=== PATIENT | female | born 1985 | race Caucasian/White ===

== ENCOUNTER → 2020-07-02 09:44 | Outpatient (BNVA) | payer MEDICARE, MEDICAID, SELFPAY | PROVIDERS: Family Provider Nurse Practitioner; PCP Nurse Practitioner; Visit Provider Nurse Practitioner Family | DX: M25.531 Pain in right wrist (principal); M79.641 Pain in right hand | CPT/HCPCS: 73110; 73130 ==

== ENCOUNTER 2020-07-06 23:58 | Emergency (ER) | payer MEDICARE, MEDICAID, SELFPAY ==
[2020-07-07] VITALS: BP 119/75; PULSE 83; RESP 16; TEMP 36.7; O2SAT 95; BMI 19.6
--- NOTE | 2020-07-07 00:05 | ED_ITS ---
HPI - Skin/Abscess/Foreign Bdy General: Chief complaint: Skin/Abscess/Foreign Body Stated complaint: RASH Time Seen by Provider: 07/07/20 00:03 History of Present Illness: HPI narrative: Patient is a 35-year-old female who comes to the ED with pruritic rash. Patient says the rash started last Sunday. Patient says she started taking a new medication and believes that that caused the rash. She was seen at her primary care provider on July 02 and she was diagnosed with dermatitis caused by new medication and was told to stop taking it. Primary care provider also sent a prescription for methylprednisolone to her pharmacy, but she has not gotten prescription filled because she did not have the money. Patient says she has been applying some hydrocortisone cream on the rash but has not taken any Benadryl either. Rashes is generalized and pruritic and is on all extremities torso neck and scalp. Denies any shortness of breath, nausea or vomiting, fever or any other symptoms. Associated symptoms: Deny chills, fever(s), nausea or vomiting Review of Systems Const: Denies: fever(s), chills or fatigue Eyes: Denies: change in vision or eye discomfort ENMT: Denies: throat pain, odynophagia, nasal discharge or nasal congestion Card: Denies: chest pain, palpitations, edema, swelling of feet/ankles, dyspnea on exertion or orthopnea Resp: Denies: dyspnea, productive cough or non-productive cough GI: Denies: abdominal pain, nausea, vomiting, diarrhea, constipation or hematochezia : Denies: flank pain, dysuria or hematuria Musc: Denies: neck pain, back pain or extremity swelling Skin/Breast: Reports: rash; Denies: new lesions Neuro: Denies: headache(s), numbness in extremities or weakness in extremities PFSH ED PFSH: Family History Mother Diabetes Hypertension Grandfather Hypertension Other Heart disease Social History Smoking and tobacco status: current every day smoker cigarettes Packs smoked per day: 0.25 Years cigarettes smoked: 13 Quit status (tobacco): considering quitting Second hand smoke exposure: No Alcohol intake: never Lives independently: Yes service: No History of recent travel: No Current gender identity: Female Female Reproductive History: Date of last menstrual period: 06/19/20 Physical Exam Const: COMMON NORMALS: no acute distress, patient oriented x3 and alert GENERAL APPEARANCE: cooperative and comfortable HENMT: COMMON NORMALS: normocephalic HEAD & SCALP: normocephalic MOUTH: Normal oral and palatal mucosa present THROAT: posterior oropharynx normal and uvula midline Neck/C-Spine: COMMON NORMALS: supple GENERAL: Yes normal visual inspection Resp: COMMON NORMALS: normal respiratory effort, No retractions, No use of accessory muscles and clear to auscultation bilaterally AUSCULTATION: clear to auscultation bilaterally Cardio: COMMON NORMALS: regular rate, regular rhythm, S1 normal heart sound present, S2 normal heart sound present, No gallops present (Cardio), No clicks present (Cardio), No murmurs present (Cardio) and Peripheral pulses 2+ throughout RATE: regular rate RHYTHM: regular rhythm HEART SOUNDS: S1 normal heart sound present and S2 normal heart sound present PERIPHERAL PULSES: Peripheral pulses 2+ throughout GI: COMMON NORMALS: Normal to inspection, nondistended, normoactive bowel sounds present, Soft to palpation, non-tender and no masses PALPATION: Yes Soft to palpation : COMMON NORMALS: Yes no CVA tenderness BLADDER/KIDNEY EXAM: Yes no CVA t enderness Back/Pelvis: COMMON NORMALS: no CVA tenderness Extremity: NARRATIVE EXTREMITY EXAM: Pruritic rash on both right and left upper lower extremities. GENERAL: Yes normal exam except as noted Neuro: COMMON NORMALS: patient oriented x3 and moves all extremities SENSORIUM/ORIENTATION: Yes alert Skin: NARRATIVE SKIN EXAM: Patient has pruritic generalized rash on both right and left upper and lower extremities, torso and neck and scalp. Course Vital Signs: Vital signs: Vital Signs Temperature 98.1 F 07/07/20 00:00 Pulse Rate 83 07/07/20 00:00 Respiratory Rate 16 07/07/20 00:00 Blood Pressure 119/75 07/07/20 00:00 Pulse Oximetry 95 07/07/20 00:00 MDM - Skin/Abscess/Foreign Bdy MDM Narrative: Medical decision making narrative: Patient is a 35-year-old female comes the ED with pruritic rash. Rash started after patient took prescription medication and she has since stopped taking med. She saw her primary care doctor couple days ago about a rash and he told her to stop taking med and sent her with a prescription for Medrol Dosepak. Denies any other symptoms or trouble breathing. Patient has not filled that prescription because she did not have the money and has not taken any other medications that he suggested such as Benadryl. Patient is on no acute distress or pain. Physical exam shows a generalized pruritic rash all throughout her body while here in the ED patient was given IM triamcinolone and 50 mg of Benadryl. She was discharged with a prescription for triamcinolone cream and a Medrol Dosepak. Patient wanted me to give her another prescription for Medrol Dosepak so she could get it filled at [facility] pharmacy. Return to ED precautions given. Patient was told to follow-up with PCP in 7 to 10 days for reevaluation. Patient understood and agreed with plan. Discharge Plan Discharge Patient Disposition: Home Clinical Impression: Dermatitis Condition: Stable Prescriptions: New methylprednisolone 4 mg tablets,dose pack See Rx Instructions .ROUTE .COMPLEX Qty: 21 RF: 0 triamcinolone acetonide 0.1 % cream 1 applic TOPICAL BID Qty: 15 RF: 0 No Action albuterol sulfate [ProAir HFA] 90 mcg/actuation HFA aerosol inhaler 2 puff INHALATION Q6H PRNRF: 0 methylprednisolone [Medrol (Alex)] 4 mg tablets,dose pack See Rx Instructions PO PER PKG DIR Qty: 21 RF: 0 Discharge Orders: Discharge Order (Routine); Ordered 07/07/20 Ordered By: Cesar Mancuso Referrals: Melissa Sorto, WET POUR SUPERVISOR-C [Primary Care Provider] - Discharge Diet: Regular Discharge Activity: Resume usual activity Patient Instructions: Contact Dermatitis (ED) Activity Restrictions/Additional Instructions: Follow-up with medical provider as directed in 7-10 days. Take medications as prescribed. Take full course of methylprednisolone and purchase an [id number] Benadryl to take also to help with rash. I also am also sending you with a prescription for topical steroid cream you can use on rash as well. Return to the ER or your medical provider if condition worsens. Please read and understand discharge instructions. If any questions, please ask. Coding Level of Care Code ED Theatre Manager for Myles Fwdevon Exam Comprehensive
[2020-07-07] MEDS: diphenhydrAMINE 50 mg Capsule PO (00:53)
[2020-07-07] MEDS: triamcinolone 40 mg/mL SDV IM (00:54)
[2020-07-07 01:07] VITALS: BP 103/69; PULSE 85; RESP 14; O2SAT 99
== END 2020-07-07 01:08 | disposition home or self-care (01) ==
LOC: ER 07-07 00:24
PROVIDERS: Emergency Provider Physician Assistant; PCP Nurse Practitioner
DX: L30.9 Dermatitis, unspecified (principal); F17.210 Nicotine dependence, cigarettes, uncomplicated
CPT/HCPCS: 12345; 96372; 99281; 99283; J3301; Q0163

== ENCOUNTER → 2020-08-03 13:42 | Outpatient (BNVA) | payer MEDICARE, MEDICAID, SELFPAY | PROVIDERS: PCP Nurse Practitioner; Visit Provider Nurse Practitioner Family | DX: L02.612 Cutaneous abscess of left foot (principal) | CPT/HCPCS: 73630 ==

== ENCOUNTER → 2020-08-10 15:26 | Outpatient (BNVA) | payer MEDICARE, SELFPAY | PROVIDERS: PCP Nurse Practitioner; Visit Provider Nurse Practitioner Family | DX: L02.612 Cutaneous abscess of left foot (principal) | CPT/HCPCS: 84450; 87070 ==

== ENCOUNTER → 2020-08-18 14:37 | Outpatient (BNVA) | payer MEDICARE, SELFPAY | PROVIDERS: PCP Nurse Practitioner; Visit Provider Nurse Practitioner Family | DX: L02.612 Cutaneous abscess of left foot (principal) | CPT/HCPCS: 84450; 87070; 87075; 87205 ==

== ENCOUNTER 2020-08-23 14:07 | Outpatient (CLI) | payer MEDICARE, MEDICAID, SELFPAY | END 2020-08-23 14:08 | disposition home or self-care (01) | LOC: WOUND 14:10 | PROVIDERS: PCP Nurse Practitioner; Visit Provider Thoracic Surgery (Cardiothoracic Vascular Surgery) | DX: L97.521 Non-pressure chronic ulcer of other part of left foot limited to breakdown of skin (principal) | CPT/HCPCS: 11042; G0463; L3260 ==

== ENCOUNTER → 2020-08-31 14:56 | Outpatient (BNVA) | payer MEDICARE, MEDICAID, SELFPAY | PROVIDERS: PCP Nurse Practitioner; Visit Provider Nurse Practitioner Family | DX: L97.509 Non-pressure chronic ulcer of other part of unspecified foot with unspecified severity (principal); Z13.6 Encounter for screening for cardiovascular disorders; R73.9 Hyperglycemia, unspecified; M54.5 Low back pain | CPT/HCPCS: 80053; 80061; 81003; 83036; 84443; 85025 ==

== ENCOUNTER 2021-04-21 21:23 | Emergency (ER) | payer MEDICARE, SELFPAY ==
--- NOTE | 2021-04-21 21:35 | ED_ITS ---
HPI - General Adult General: Chief complaint: Abdominal Pain Stated complaint: jerome malise Time Seen by Provider: 04/21/21 21:34 History of Present Illness: HPI narrative: Patient comes in today for not feeling well. Patient thought she might be having some problems with blood sugar. Patient has no history of diabetes. Patient takes no routine medications. EMS checked patient's blood sugar and it was 113. Patient appears mildly unwell but not toxic. Patient appears in no pain. Associated symptoms: Reports malaise Review of Systems General: Reports: 10 or more systems reviewed and unremarkable except in HPI and below Const: Reports: malaise [facility] ED PFSH: Medical History (Updated 04/21/21 @ 22:40 by EDILIA Kiran) Asthma Depression Enlarged thyroid Environmental and seasonal allergies GERD (gastroesophageal reflux disease) Scabies Surgical History Hx of cholecystectomy Family History Mother Diabetes Hypertension Grandfather Hypertension Other Heart disease Social History Smoking and tobacco status: current every day smoker cigarettes Packs smoked per day: 0.25 Years cigarettes smoked: 13 Quit status (tobacco): considering quitting Second hand smoke exposure: No Alcohol intake: never Lives independently: Yes service: No History of recent travel: No Current gender identity: Female Female Reproductive History: Date of last menstrual period: 06/19/20 Physical Exam Const: COMMON NORMALS: no acute distress and patient oriented x3 GENERAL APPEARANCE: cooperative HENMT: COMMON NORMALS: normocephalic and Normal external nose present HEAD & SCALP: normal to inspection and normocephalic NOSE: Normal external nose present MOUTH: Normal oral and palatal mucosa present THROAT: posterior oropharynx normal Eye: GENERAL EYE: appearance normal, both eyes and all related structures Neck/C-Spine: COMMON NORMALS: full ROM Lymph: LYMPHATIC: no lymphadenopathy noted Chest: COMMONS NORMALS: normal inspection of the chest Resp: COMMON NORMALS: normal respiratory effort EFFORT & INSPECTION: Yes able to speak in complete sentences Cardio: COMMON NORMALS: regular rate and regular rhythm RATE: regular rate RHYTHM: regular rhythm GI: COMMON NORMALS: non-tender : COMMON NORMALS: Yes no CVA tenderness BLADDER/KIDNEY EXAM: Yes no CVA tenderness Back/Pelvis: COMMON NORMALS: no CVA tenderness and thoracic and lumbar spine normal to inspection Extremity: COMMON NORMALS: normal to inspection Neuro: COMMON NORMALS: patient oriented x3 and moves all extremities Psych: COMMON NORMALS: mental status grossly normal and cooperative Skin: COMMON NORMALS: no rashes or lesions noted NARRATIVE SKIN EXAM: Uncut fingernails and toenails. GENERAL SKIN EXAM: no rashes or lesions noted Course Vital Signs: Vital signs: Vital Signs Temperature 97.9 F 04/21/21 21:51 Pulse Rate 86 04/21/21 21:51 Respiratory Rate 17 04/21/21 21:51 Blood Pressure 118/66 04/21/21 21:51 Pulse Oximetry 98 04/21/21 21:51 MDM - General Adult MDM Narrative: Medical decision making narrative: 35-year-old female comes in today with reporting malaise. Patient reports just not feeling well today. Patient was brought in by EMS due to her concern of having diabetes. Patient has no history of diabetes but has a history of a poor healing wound to her foot. Patient reports that the wound is healed. On exam patient appears well. Patient is very quiet during the exam denies any suicidal homicidal thought. Lungs were clear to auscultation. Abdomen soft nontender. No CVA tenderness. Skin was warm and dry. Vital signs were normal. Differential diagnosis includes but not limited to worried well, substance abuse, undiagnosed diabetes, dehydration. Laboratory values noted a 12,000 white count, and nitrates in the urine. Remainder of labs were normal. Feel the patient probably has a urinary tract infection which may be contributing to her malaise, I also think the patient may have some substance abuse issues although she denies any or underlying psychiatric disorder. Patient be treated with Bactrim for her UTI 1 tablet twice a day for 5 days, she was given 1 dose of Pyridium and 1 dose of Bactrim in the ER. Lab Data: Labs: Lab Results 04/21/21 04/21/21 04/21/21 Range/Units 21:57 22:00 22:00 WBC 12.6 H (4.0-10.0) 10^3/ uL RBC 4.90 (4.1-5.3) 10^6/u L Hgb 15.3 (11.5-15.3) g/dL Hct 45.2 (37.0-47.0) % MCV 92.2 (81-99) fL MCH 31.2 (28.0-34.0) pg MCHC 33.8 (30.0-36.0) g/dL RDW 12.2 (12.1-15.1) % Plt Count 258 (130-400) 10^3/c mm MPV 10.4 (7.4-10.4) fL Neut % (Auto) 55.8 % Lymph % (Auto) 33.9 % [place] % (Auto) 5.6 % Eos % (Auto) 3.7 % Baso % (Auto) 0.7 % Neut # (Auto) 7.01 (1.8-7.7) 10^3/u L Lymph # (Auto) 4.3 (0.8-4.8) 10^3/u L [place] # (Auto) 0.7 (0.2-0.9) 10^3/u L Eos # (Auto) 0.5 (0.0-0.8) 10^3/u L Baso # (Auto) 0.1 (0.0-0.1) 10^3/u L Nucleated RBC % (a uto) 0 % Nucleated RBCs # 0.0 /100WBC Sodium 141 (136-145) mmol/L Potassium 3.6 (3.5-5.1) mmol/L Chloride 107 (98-107) mmol/L Carbon Dioxide 23 (22-29) mmol/L Anion Gap 14.6 (5-19) BUN 16 (6-20) mg/dL Creatinine 0.6 (0.5-0.9) mg/dL GFR Calculation 112.5 (90-130) mL/min Glucose 87 (65-115) mg/dL Calculated Osmolal ity 293 (285-295) mOsm/k g Calcium 8.6 (8.5-10.5) mg/dL Total Bilirubin 0.3 (0.15-1.2) mg/dL AST 8 (0-32) U/L ALT 15 (0-33) U/L Alkaline Phosphata se 77 (35-105) IU/L Total Protein 6.6 (6.6-8.7) g/dL Albumin 4.0 (3.5-5.2) g/dL Globulin 2.6 (1.3-4.6) g/dL HCG, Qual (Negative) Urine Color Yellow (Yellow) Urine Appearance Sl hazy (CLEAR) Urine pH 9 H (5-7) Ur Specific Gravit y 1.025 (1.005-1.030) Urine Protein Neg (Negative) Urine Glucose (UA) Norm (Normal) Urine Ketones Negative (Negative) Urine Blood Neg (Negative) Urine Nitrate Positive H (Negative) Urine Bilirubin Neg (Negative) Prot Sulfosalicyli c Acd Negative (Negative) Urine Urobilinogen Norm (Negative) mg/dL Ur Leukocyte Hannah ase 1+ H (Negative) Urine RBC 0-4 H (0-2) /hpf Urine WBC 15-25 H (0-5) /hpf Ur Squamous Epith Cells 10-15 H (0-5) /hpf Amorphous Sediment Not Reportable Urine Bacteria 3+ H (NONE) /hpf 06/17/21 Range/Units 22:00 WBC (4.0-10.0) 10^3/ uL RBC (4.1-5.3) 10^6/u L Hgb (11.5-15.3) g/dL Hct (37.0-47.0) % MCV (81-99) fL MCH (28.0-34.0) pg MCHC (30.0-36.0) g/dL RDW (12.1-15.1) % Plt Count (130-400) 10^3/c mm MPV (7.4-10.4) fL Neut % (Auto) % Lymph % (Auto) % [place] % (Auto) % Eos % (Auto) % Baso % (Auto) % Neut # (Auto) (1.8-7.7) 10^3/u L Lymph # (Auto) (0.8-4.8) 10^3/u L [place] # (Auto) (0.2-0.9) 10^3/u L Eos # (Auto) (0.0-0.8) 10^3/u L Baso # (Auto) (0.0-0.1) 10^3/u L Nucleated RBC % (a uto) % Nucleated RBCs # /100WBC Sodium (136-145) mmol/L Potassium (3.5-5.1) mmol/L Chloride (98-107) mmol/L Carbon Dioxide (22-29) mmol/L Anion Gap (5-19) BUN (6-20) mg/dL Creatinine (0.5-0.9) mg/dL GFR Calculation (90-130) mL/min Glucose (65-115) mg/dL Calculated Osmolal ity (285-295) mOsm/k g Calcium (8.5-10.5) mg/dL Total Bilirubin (0.15-1.2) mg/dL AST (0-32) U/L ALT (0-33) U/L Alkaline Phosphata se (35-105) IU/L Total Protein (6.6-8.7) g/dL Albumin (3.5-5.2) g/dL Globulin (1.3-4.6) g/dL HCG, Qual Negative (Negative) Urine Color (Yellow) Urine Appearance (CLEAR) Urine pH (5-7) Ur Specific Gravit y (1.005-1.030) Urine Protein (Negative) Urine Glucose (UA) (Normal) Urine Ketones (Negative) Urine Blood (Negative) Urine Nitrate (Negative) Urine Bilirubin (Negative) Prot Sulfosalicyli c Acd (Negative) Urine Urobilinogen (Negative) mg/dL Ur Leukocyte Hannah ase (Negative) Urine RBC (0-2) /hpf Urine WBC (0-5) /hpf Ur Squamous Epith Cells (0-5) /hpf Amorphous Sediment Urine Bacteria (NONE) /hpf Discharge Plan Discharge Patient Disposition: Home Clinical Impression: Malaise, Cystitis Condition: Stable Prescriptions: New Bactrim DS 800-160 mg tablet 1 tab PO BID 5 Days Qty: 10 RF: 0 No Action albuterol sulfate [ProAir HFA] 90 mcg/actuation HFA aerosol inhaler 2 puff INHALATION Q6H PRNRF: 0 mupirocin 2 % ointment 1 applic TOPICAL BID Qty: 22 RF: 0 permethrin 5 % cream 1 applic TOPICAL Q14D Qty: 60 RF: 0 methylprednisolone [Medrol (Alex)] 4 mg tablets,dose pack See Rx Instructions PO PER PKG DIR Qty: 21 RF: 0 triamcinolone acetonide 0.1 % cream 1 applic TOPICAL BID Qty: 15 RF: 0 Discharge Orders: Discharge ED (Routine); Ordered 04/21/21 Ordered By: Efrain Rogers Referrals: Melissa Sorto, ELECTRON BEAM WELDING MACHINE OPERATOR-C [Primary Care Provider] - Discharge Diet: Usual diet Discharge Activity: Increase activity as tolerated Patient Instructions: Urinary Tract Infection in Women (ED), Opioid Safety Activity Restrictions/Additional Instructions: Home and rest. Drink plenty of water with antibiotics. Take antibiotics as directed for the next 5 days. Follow-up with primary care in 1 week for recheck of urine. Return to the ER for new concerns. Coding Level of Care Code ED Equities Analyst for Emilieg Fwd Exam Comprehensive
[2021-04-21 21:51] VITALS: BP 118/66; PULSE 86; RESP 17; TEMP 36.6; O2SAT 98; BMI 26.4
[2021-04-21 22:09] LABS: Add Urine Microscopic? YES; Bilirubin Urine Neg (Negative); Blood Urine Neg (Negative); Glucose Urine UA Norm (Normal); Ketones Urine Negative (Negative); Leukocyte Esterase Urine 1+ (Negative); Nitrate Urine Positive (Negative); Protein Urine Neg (Negative); RBC Urine 0-4 /hpf (0-2); Specific Gravity, Urine 1.025 (1.005-1.030); Sulfosalicylic Acid Urine Negative (Negative); Urine Appearance SL Hazy (CLEAR); Urine Color Yellow (Yellow); Urobilinogen Urine Norm (Negative); WBC Urine 15-25 /hpf (0-5); pH Urine 9 (5-7)
[2021-04-21 22:10] LABS: Add Urine Culture? No; Bacteria Urine 3+ /hpf
[2021-04-21 22:13] LABS: Basophils # 0.1 10^3/uL (0.0-0.1); Basophils % 0.7 %; Eosinophils # 0.5 10^3/uL (0.0-0.8); Eosinophils % 3.7 %; Hematocrit 45.2 % (37.0-47.0); Hemoglobin 15.3 g/dL (11.5-15.3); Lymphocytes # 4.3 10^3/uL (0.8-4.8); Lymphocytes % 33.9 %; Mean Corpuscular HGB Conc 33.8 g/dL (30.0-36.0); Mean Corpuscular Hemoglobin 31.2 pg (28.0-34.0); Mean Corpuscular Volume 92.2 fL (81-99); Mean Platelet Volume 10.4 fL (7.4-10.4); Monocytes # 0.7 10^3/uL (0.2-0.9); Monocytes % 5.6 %; Neutrophils # 7.01 10^3/uL (1.8-7.7); Neutrophils % 55.8 %; Nucleated Red Blood Cells % 0 %; Platelet Count 258 10^3/cmm (130-400); Red Cell Distribution Width 12.2 % (12.1-15.1); White Blood Count 12.6 10^3/uL (4.0-10.0)
[2021-04-21 22:22] LABS: HCG, Serum Qual Negative (Negative)
[2021-04-21 22:30] LABS: Alanine Aminotransferase 15 U/L (0-33); Alkaline Phosphatase 77 IU/L (35-105); Anion Gap 14.6 (5-19); Aspartate Amino Transferase 8 U/L (0-32); Blood Urea Nitrogen 16 mg/dL (6-20); Calcium 8.6 mg/dL (8.5-10.5); Carbon Dioxide 23 mmol/L (22-29); Chloride 107 mmol/L (98-107); Globulin 2.6 g/dL (1.3-4.6); Glomerular Filtration Rate 112.5 mL/min (90-130); Glucose 87 mg/dL (65-115); Osmolality Calculated 293 mOsm/kg (285-295); Potassium 3.6 mmol/L (3.5-5.1); Sodium 141 mmol/L (136-145); Total Bilirubin 0.3 mg/dL (0.15-1.2); Total Protein 6.6 g/dL (6.6-8.7)
== END 2021-04-21 22:50 | disposition home or self-care (01) ==
PROVIDERS: Emergency Provider Nurse Practitioner Family; PCP Nurse Practitioner
DX: R53.81 Other malaise (principal); N30.90 Cystitis, unspecified without hematuria; F17.210 Nicotine dependence, cigarettes, uncomplicated
CPT/HCPCS: 80053; 81001; 84703; 85025; 99282

== ENCOUNTER 2021-05-17 14:02 | Emergency (ER) | payer MEDICARE, SELFPAY ==
[2021-05-17 14:11] VITALS: BP 100/62; PULSE 64; RESP 18; TEMP 37.1; O2SAT 99; BMI 26.6
[2021-05-17 14:44] LABS: Add Urine Microscopic? NO; Charge for UA Resulting for Rev
--- NOTE | 2021-05-17 14:51 | PC.NURSE ---
pt noted to be a poor historian. Pt noted to reports different answers to ems, RN, and EXTRUDER TENDER. menstrual cycle reported normal per EMS, reported last cycle January to RN, and April to EXTRUDER TENDER. Pt also reports different start of symptoms 1 month per EMS, January to RN, and today to EXTRUDER TENDER
--- NOTE | 2021-05-17 14:53 | W.ED.ABDPA2 ---
HPI - Abdominal Pain General: Chief Complaint: Abdominal Pain Stated Complaint: ABD PAIN Time Seen by Provider: 05/17/21 14:17 Source: patient Mode of arrival: ambulatory Limitations: no limitations History of Present Illness: HPI narrative: Patient is a 36-year-old female who presents to ED today with a complaint of an episode of abdominal pain that has now resolved. Patient tells me around 1:00 after eating she noticed pain to her left lower abdomen. She states pain was present for approximately 2 hours and then resolved on its own. She has no complaints at this time. She did not complain of nausea or vomiting when the pain was present. She has not noticed any changes in her bowel movements. She denies urinary symptoms. No vaginal bleeding or discharge. No fevers. MD elicited complaint: abdominal pain Pertinent past history: none Onset (ago): hour(s) Pain Consistency: now resolved Location: LLQ Radiation: none Migration to: no migration Exacerbating factors: nothing Relieving factors: nothing Associated Symptoms: Reports no associated symptoms; Denies change in stool character, chills, diarrhea, dysuria, fever(s), hematuria, nausea and vomiting Related Data: Date of Last Menstrual Period: 04/05/21 Patient : No Review of Systems Const: Denies: fever(s), chills, body aches, fatigue or malaise Card: Denies: chest pain Resp: Denies: dyspnea GI: Reports: abdominal pain (now resolved ); Denies: nausea, vomiting, diarrhea or change in stool character : Denies: flank pain, difficulty voiding, dysuria, urinary frequency, urinary urgency, urinary hesitancy, hematuria, genital lesions, genital pruritis, vaginal odor, vaginal bleeding, vaginal discharge or pelvic pain Musc: Denies: neck pain or back pain Skin/Breast: Denies: rash Neuro: Denies: headache(s) PFS ED PFSH: Medical History (Updated 05/17/21 @ 16:23 by CRISTINE Jade) Asthma Depression Enlarged thyroid Environmental and seasonal allergies GERD (gastroesophageal reflux disease) Scabies Surgical History Hx of cholecystectomy Family History Mother Diabetes Hypertension Grandfather Hypertension Other Heart disease Social History Smoking and tobacco status: current every day smoker cigarettes Packs smoked per day: 0.25 Years cigarettes smoked: 13 Quit status (tobacco): considering quitting Second hand smoke exposure: No Alcohol intake: never Lives independently: Yes service: No History of recent travel: No Current gender identity: Female Female Reproductive History: Date of last menstrual period: 04/05/21 Physical Exam Const: COMMON NORMALS: no acute distress, average body habitus, patient oriented x3, no limitations, healthy appearing, alert and well nourished GENERAL APPEARANCE: cooperative ORIENTATION/CONSCIOUSNESS: Yes awake, Yes oriented to person, Yes oriented to place and Yes oriented to time Resp: COMMON NORMALS: normal respiratory effort and clear to auscultation bilaterally AUSCULTATION: clear to auscultation bilaterally Cardio: COMMON NORMALS: regular rate and regular rhythm RATE: regular rate RHYTHM: regular rhythm GI: COMMON NORMALS: Normal to inspection, nondistended, normoactive bowel sounds present, Soft to palpation, non-tender, No hepatosplenomegaly present and no masses PALPATION: Yes Soft to palpation and Yes No hepatosplenomegaly present : COMMON NORMALS: Yes no CVA tenderness BLADDER/KIDNEY EXAM: Yes no CVA tenderness Back/Pelvis: COMMON NORMALS: no CVA tenderness Extremity: COMMON NORMALS: no clubbing, cyanosis or edema, no calf tenderness and no pedal edema Neuro: COMMON NORMALS: patient oriented x3 SENSORIUM/ORIENTATION: Yes alert, Yes oriented to person, Yes oriented to place and Yes oriented to time Skin: COMMON NORMALS: no rashes or lesions noted GENERAL SKIN EXAM: no rashes or lesions noted TRAUMA: no lacerations or abrasions Course Vital Signs: Vital signs: Vital Signs Temperature 98.7 F 05/17/21 14:11 Pulse Rate 64 05/17/21 14:11 Respiratory Rate 18 05/17/21 14:11 Blood Pressure 100/62 05/17/21 14:11 Pulse Oximetry 99 05/17/21 14:11 MDM - Abdominal Pain MDM Narrative: Medical decision making narrative: Patient has completely resolved abdominal pain. Her vital signs are stable. Labs and UA are unremarkable. Patient is stable for discharge with return to ED precautions. Lab Data: Labs: Lab Results 05/17/21 05/17/21 05/17/21 Range/Units 14:30 14:45 14:45 WBC Cancelled Corrected WBC Cancelled RBC Cancelled Hgb Cancelled Hct Cancelled MCV Cancelled MCH Cancelled MCHC Cancelled RDW Cancelled Plt Count Cancelled MPV Cancelled Gran % Cancelled Neut % (Auto) Cancelled Lymph % (Auto) Cancelled [place] % (Auto) Cancelled Eos % (Auto) Cancelled Baso % (Auto) Cancelled Neut # (Auto) Cancelled Lymph # (Auto) Cancelled [place] # (Auto) Cancelled Eos # (Auto) Cancelled Baso # (Auto) Cancelled Absolute Gran (aut o) Cancelled Nucleated RBC % (a uto) Cancelled Nucleated RBCs # Cancelled Sodium 139 (136-145) mmol/L Potassium 3.7 (3.5-5.1) mmol/L Chloride 103 (98-107) mmol/L Carbon Dioxide 27 (22-29) mmol/L Anion Gap 12.7 (5-19) BUN 13 (6-20) mg/dL Creatinine 0.6 (0.5-0.9) mg/dL GFR Calculation 111.9 (90-130) mL/min Glucose 65 (65-115) mg/dL Calculated Osmolal ity 286 (285-295) mOsm/k g Calcium 8.7 (8.5-10.5) mg/dL Total Bilirubin 0.4 (0.15-1.2) mg/dL AST 13 (0-32) U/L ALT 16 (0-33) U/L Alkaline Phosphata se 77 (35-105) IU/L Total Protein 7.3 (6.6-8.7) g/dL Albumin 4.4 (3.5-5.2) g/dL Globulin 2.9 (1.3-4.6) g/dL Lipase 44 (13-60) U/L HCG, Qual (Negative) Urine Color Straw (Yellow) Urine Appearance Clear (CLEAR) Urine pH 7 (5-7) Ur Specific Gravit y 1.005 (1.005-1.030) Urine Protein Neg (Negative) Urine Glucose (UA) Norm (Normal) Urine Ketones Negative (Negative) Urine Blood Neg (Negative) Urine Nitrate Negative (Negative) Urine Bilirubin Neg (Negative) Urine Urobilinogen Norm (Negative) mg/dL Ur Leukocyte Hannah ase Negative (Negative) 05/17/21 05/17/21 Range/Units 14:45 15:24 WBC 8.9 Corrected WBC RBC 4.48 Hgb 14.1 Hct 42.6 MCV 95.1 MCH 31.5 MCHC 33.1 RDW 12.4 Plt Count 219 MPV 11.2 H Gran % Neut % (Auto) 63.7 Lymph % (Auto) 23.4 [place] % (Auto) 5.9 Eos % (Auto) 5.6 Baso % (Auto) 0.9 Neut # (Auto) 5.66 Lymph # (Auto) 2.1 [place] # (Auto) 0.5 Eos # (Auto) 0.5 Baso # (Auto) 0.1 Absolute Gran (aut o) Nucleated RBC % (a uto) 0 Nucleated RBCs # 0.0 Sodium (136-145) mmol/L Potassium (3.5-5.1) mmol/L Chloride (98-107) mmol/L Carbon Dioxide (22-29) mmol/L Anion Gap (5-19) BUN (6-20) mg/dL Creatinine (0.5-0.9) mg/dL GFR Calculation (90-130) mL/min Glucose (65-115) mg/dL Calculated Osmolal ity (285-295) mOsm/k g Calcium (8.5-10.5) mg/dL Total Bilirubin (0.15-1.2) mg/dL AST (0-32) U/L ALT (0-33) U/L Alkaline Phosphata se (35-105) IU/L Total Protein (6.6-8.7) g/dL Albumin (3.5-5.2) g/dL Globulin (1.3-4.6) g/dL Lipase (13-60) U/L HCG, Qual Negative (Negative) Urine Color (Yellow) Urine Appearance (CLEAR) Urine pH (5-7) Ur Specific Gravit y (1.005-1.030) Urine Protein (Negative) Urine Glucose (UA) (Normal) Urine Ketones (Negative) Urine Blood (Negative) Urine Nitrate (Negative) Urine Bilirubin (Negative) Urine Urobilinogen (Negative) mg/dL Ur Leukocyte Hannah ase (Negative) Discharge Plan Discharge Patient Disposition: Home Clinical Impression: Resolved abdominal pain Condition: Stable Prescriptions: No Action permethrin 5 % cream 1 applic topical Q14D Qty: 60 RF: 0 triamcinolone acetonide 0.1 % cream 1 applic TOPICAL BID Qty: 15 RF: 0 Discharge Orders: Discharge ED (Routine); Ordered 05/17/21 Ordered By: Dagmar Fernandez Referrals: Melissa Sorto, [facility] [Primary Care Provider] - Patient Instructions: Abdominal Pain - Adult Coding Level of Care Code ED Cable Technician for Myles Rosario
[2021-05-17 14:58] LABS: Bilirubin Urine Neg (Negative); Blood Urine Neg (Negative); Glucose Urine UA Norm (Normal); Ketones Urine Negative (Negative); Leukocyte Esterase Urine Negative (Negative); Nitrate Urine Negative (Negative); Protein Urine Neg (Negative); Specific Gravity, Urine 1.005 (1.005-1.030); Urine Appearance Clear (CLEAR); Urine Color Straw (Yellow); Urobilinogen Urine Norm (Negative); pH Urine 7 (5-7)
[2021-05-17 15:10] LABS: HCG, Serum Qual Negative (Negative)
[2021-05-17 15:15] LABS: Alanine Aminotransferase 16 U/L (0-33); Albumin Level 4.4 g/dL (3.5-5.2); Alkaline Phosphatase 77 IU/L (35-105); Anion Gap 12.7 (5-19); Aspartate Amino Transferase 13 U/L (0-32); Blood Urea Nitrogen 13 mg/dL (6-20); Calcium 8.7 mg/dL (8.5-10.5); Carbon Dioxide 27 mmol/L (22-29); Chloride 103 mmol/L (98-107); Globulin 2.9 g/dL (1.3-4.6); Glomerular Filtration Rate 111.9 mL/min (90-130); Glucose 65 mg/dL (65-115); Lipase 44 U/L (13-60); Osmolality Calculated 286 mOsm/kg (285-295); Potassium 3.7 mmol/L (3.5-5.1); Sodium 139 mmol/L (136-145); Total Bilirubin 0.4 mg/dL (0.15-1.2); Total Protein 7.3 g/dL (6.6-8.7)
[2021-05-17 16:22] LABS: Basophils # 0.1 10^3/uL (0.0-0.1); Basophils % 0.9 %; Eosinophils # 0.5 10^3/uL (0.0-0.8); Eosinophils % 5.6 %; Hematocrit 42.6 % (37.0-47.0); Hemoglobin 14.1 g/dL (11.5-15.3); Lymphocytes # 2.1 10^3/uL (0.8-4.8); Lymphocytes % 23.4 %; Mean Corpuscular HGB Conc 33.1 g/dL (30.0-36.0); Mean Corpuscular Hemoglobin 31.5 pg (28.0-34.0); Mean Corpuscular Volume 95.1 fL (81-99); Mean Platelet Volume 11.2 fL (7.4-10.4); Monocytes # 0.5 10^3/uL (0.2-0.9); Monocytes % 5.9 %; Neutrophils # 5.66 10^3/uL (1.8-7.7); Neutrophils % 63.7 %; Nucleated Red Blood Cells % 0 %; Platelet Count 219 10^3/cmm (130-400); Red Blood Count 4.48 10^6/uL (4.1-5.3); Red Cell Distribution Width 12.4 % (12.1-15.1); White Blood Count 8.9 10^3/uL (4.0-10.0)
[2021-05-17 16:31] VITALS: PULSE 78; RESP 18; O2SAT 98
== END 2021-05-17 16:33 | disposition home or self-care (01) ==
PROVIDERS: Emergency Provider Physician Assistant; PCP Nurse Practitioner
DX: R10.9 Unspecified abdominal pain (principal); F17.210 Nicotine dependence, cigarettes, uncomplicated
CPT/HCPCS: 80053; 81003; 83690; 84703; 85025; 99282

== ENCOUNTER → 2021-05-20 11:26 | Outpatient (BNVA) | payer MEDICARE, SELFPAY | PROVIDERS: PCP Nurse Practitioner; Visit Provider Emergency Medicine | DX: Z20.822 Contact with and (suspected) exposure to COVID-19 (principal) | CPT/HCPCS: 87635 ==

== ENCOUNTER → 2021-06-09 12:02 | Outpatient (BNVA) | payer MEDICARE, SELFPAY | PROVIDERS: PCP Nurse Practitioner; Visit Provider Nurse Practitioner Family | DX: Z20.822 Contact with and (suspected) exposure to COVID-19 (principal); R07.9 Chest pain, unspecified; J22 Unspecified acute lower respiratory infection; R01.1 Cardiac murmur, unspecified | CPT/HCPCS: 87635 ==

== ENCOUNTER → 2022-06-13 15:45 | Outpatient (BNVA) | payer MEDICARE, SELFPAY | PROVIDERS: PCP Nurse Practitioner; Visit Provider Nurse Practitioner Family | DX: R06.02 Shortness of breath (principal); R07.9 Chest pain, unspecified; R53.83 Other fatigue; Z13.6 Encounter for screening for cardiovascular disorders; R73.9 Hyperglycemia, unspecified; N92.6 Irregular menstruation, unspecified; T67.5XXA Heat exhaustion, unspecified, initial encounter | CPT/HCPCS: 71046; 80053; 80061; 81025; 83036; 84443 ==

== ENCOUNTER 2022-08-31 12:09 | Emergency (ER) | payer MEDICARE, SELFPAY ==
[2022-08-31 12:30] VITALS: BP 90/61; PULSE 62; RESP 15; TEMP 36.6; O2SAT 98; BMI 28.2
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
--- NOTE | 2022-08-31 15:44 | PC.NURSE ---
JOSÉ MIGUEL nurse in with patient
--- NOTE | 2022-08-31 15:44 | PC.NURSE ---
JOSÉ MIGUEL NURSE AND NURSE PRACTITIONER IN WITH PATIENT AT THIS TIME.
--- NOTE | 2022-08-31 15:46 | NUR.SHIFT ---
Attempted to call ride - number provided to this nurse for sister, Deepthi, is [phone] - there is no answer and there is a message that says, We're sorry but the wireless customer has a voicemail box that is not set up yet, neri .
[2022-08-31 16:10] LABS: Hepatitis A Antibody IgM Non-Reactive (Nonreactive); Hepatitis B Core AB, Total Non-Reactive (Nonreactive); Hepatitis B Surface AB 3.5 (11.5-1000); Hepatitis B Surface Antigen Non-Reactive (Nonreactive); Hepatitis C Virus Antibody Non-Reactive (Nonreactive)
[2022-08-31 18:06] LABS: HIV 1 & 2 Antigen Non-Reactive (Non-Reactiv)
[2022-08-31 18:07] LABS: HIV 1 & 2 Antibody Non-Reactive (Non-Reactiv)
[2022-09-04 15:28] LABS: RPR w(Moniotor) w/REFL Titer NON-REACTIVE (NON-REACTIVE)
--- NOTE | 2022-09-05 12:46 | DCPLANNER ---
Addendum entered by Myah Blanchard 09/14/22 14:12: clinical program manager received the following message from the front office staff at [facility] regarding follow up appointment: Tried to call pt to schedule appt, pts phone has a phone restriction on it so you cannot even leave a vm. Original Note: clinical program manager had message to schedule a follow up appointment for patient with [facility]. clinical program manager sent patients information to the front office staff at [facility]. Patients information will be printed and reviewed. Clinic will call patient with appointment information.
== END 2022-08-31 16:22 | disposition home or self-care (01) ==
PROVIDERS: Emergency Provider Nurse Practitioner Family; PCP Nurse Practitioner
DX: T74.21XA Adult sexual abuse, confirmed, initial encounter (principal); Q52.5 Fusion of labia; Y07.59 Other non-family member, perpetrator of maltreatment and neglect; F17.210 Nicotine dependence, cigarettes, uncomplicated
CPT/HCPCS: 86592; 86705; 86706; 86709; 86803; 87340; 87491; 87591; 87661; 87806; 99285

== ENCOUNTER → 2022-11-03 15:08 | Outpatient (BNVA) | payer OTHER, SELFPAY | PROVIDERS: PCP Nurse Practitioner; Visit Provider Nurse Practitioner Family | DX: R05.9 Cough, unspecified (principal); R50.9 Fever, unspecified | CPT/HCPCS: 87400; 87426; 87880 ==

== ENCOUNTER → 2022-12-07 09:57 | Outpatient (BNVA) | payer MEDICARE, SELFPAY | PROVIDERS: PCP Nurse Practitioner; Visit Provider Nurse Practitioner Family | DX: R52 Pain, unspecified (principal); M25.512 Pain in left shoulder | CPT/HCPCS: 73030 ==

== ENCOUNTER → 2024-08-20 12:23 | Outpatient (BNVA) | payer MEDICARE, SELFPAY | PROVIDERS: PCP Nurse Practitioner; Visit Provider Nurse Practitioner Family | DX: R19.8 Other specified symptoms and signs involving the digestive system and abdomen (principal); R11.0 Nausea | CPT/HCPCS: 80053; 81025; 84443; 85025 ==

== ENCOUNTER → 2025-02-25 11:00 | Outpatient (BNVA) | payer MEDICARE, SELFPAY | PROVIDERS: PCP Nurse Practitioner Family; Visit Provider Nurse Practitioner Family | DX: Z13.6 Encounter for screening for cardiovascular disorders (principal); R53.83 Other fatigue | CPT/HCPCS: 80053; 80061; 84443; 85025 ==

== ENCOUNTER 2025-02-27 14:07 | Outpatient (CLI) | payer MEDICARE, SELFPAY ==
--- NOTE | 2025-02-27 14:00 | MM_ITS ---
WS: [id number] BILATERAL 3D TOMOSYNTHESIS DIGITAL SCREENING MAMMOGRAPHY WITH CAD CLINICAL INFORMATION: Z12.39 - Encounter for other screening for malignant neop... HISTORY: Screening mammogram. No current complaints. COMPARISON: Baseline TECHNIQUE: Bilateral CC and MLO views. FINDINGS: The breasts are composed of heterogeneous fibroglandular density tissue, which can limit the detection of small underlying mass lesions. No suspicious mass, asymmetry, calcifications, or architectural distortion. No evidence of malignancy. Incidental punctate and lucent centered calcifications. MM/MM [facility] tomosynthesis [id number] IMPRESSION: DENSITY: The breasts are heterogeneously dense, which may obscure small masses. BI-RADS: 2 - Benign FOLLOW UP: 1 Year Follow-up Recommend return to annual screening mammography.
== END 2025-02-27 14:08 | disposition home or self-care (01) ==
LOC: RAD 14:09
PROVIDERS: PCP Nurse Practitioner Family; Visit Provider Nurse Practitioner Family
DX: Z12.31 Encounter for screening mammogram for malignant neoplasm of breast (principal); R92.333 Mammographic heterogeneous density, bilateral breasts; R92.1 Mammographic calcification found on diagnostic imaging of breast
CPT/HCPCS: 77063; 77067